=== PATIENT | female | born 1950 | race Caucasian/White ===

== ENCOUNTER → 2017-06-19 | Outpatient (CLI) | payer OTHER | LOC: ULTRA 07:39 | DX: K76.0 Fatty (change of) liver, not elsewhere classified (principal) ==

== ENCOUNTER 2017-07-18 05:12 | Observation (INO) | payer OTHER ==
[~2017-07-18] VITALS: Ht 172.7 cm; Wt 98.4 kg
--- NOTE | ~2017-07-18 | S ---
[facility] [place] [address] SURGICAL PATH RPT PROCEDURE Name: JOE HUNTER Room #: 440-P [facility]..#: [id number] Admission: 07/18/17 Date of : 52 Discharge: Report #: [id number] Path Case #: [id number] PATHOLOGY REPORT COLLECTION DATE: 07/18/2017 RECEIVED DATE: 07/18/2017 SUBMITTING PHYS: Dr. Romeo Magallanes OTHER PHYS: Dr. Jericho Doyle SPECIMEN(S) RECEIVED: A.Gallbladder * * * * * * * * * * * * FINAL DIAGNOSIS: Gallbladder, cholecystectomy: - Mild chronic cholecystitis. PATHOLOGIST: Pricila Marsh M.D. REPORT ELECTRONICALLY SIGNED BY: Pricila Marsh M.D. DATE/TIME: 07/19/2017 13:54 * * * * * * * * * * * * GROSS PATHOLOGY: Received in formalin labeled "Joe Hunter gallbladder," is a 5.5 x 4.2 x 0.9 cm, previously opened gallbladder with light green, wrinkled, and slightly vascular serosal surfaces. Opening the gallbladder reveals dark koroma, velvety mucosa and an average wall thickness of 0.2 cm. Calculi are not present (upon filtration of the specimen container and contents) and no masses are noted grossly. Quality Control Director sections from the body and fundus are submitted along with the proximal margin in cassette A1. (TSD; 07/18/2017) CLINICAL HISTORY: Cholecystitis with cholelithiasis INITIAL CPT CODE(S): A; 48600 Professional services performed by [facility] at [facility] [address], [place] [address] Technical services performed by [facility] at [address] [place] [id number]. [facility] [address] [place] [address] SURGICAL PATH RPT PROCEDURE Name: JOE HUNTER Room #: 440-P [facility] Alejandro Estrada#: [id number] Admission: 07/18/17 Date of : 52 Discharge: Report #: [id number] Path Case #: [id number] [facility] [address] PHONE: [phone] DIRECTOR: Vaibhav Zhu M.D. * * * END OF REPORT * * *
--- NOTE | ~2017-07-18 | EKG ---
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
--- NOTE | ~2017-07-18 | O ---
[facility] [place] [address] OPERATIVE REPORT Name: JOE BYRD Room #: 440-P [facility]..#: [id number] Admission: 07/18/17 Attend Phys: Romeo Magallanes MD Discharge: Date of : 52 Report #: [id number] THIS REPORT FOR: //name// CC: Romeo Doyle MD DATE OF SERVICE: 07/18/2017 PREOPERATIVE DIAGNOSES: Cholecystitis with cholelithiasis. POSTOPERATIVE DIAGNOSES: Cholecystitis with cholelithiasis. Stone stuck in the cystic duct, extensive adhesions around the gallbladder. PROCEDURES PERFORMED: Laparoscopic cholecystectomy with cholangiogram. SURGEON: Romeo Magallanes MD. ANESTHESIA: General anesthesia. COMPLICATIONS: None. ESTIMATED BLOOD LOSS: 5 mL. DESCRIPTION OF PROCEDURE: With the patient under general anesthesia, abdomen was prepped and draped in sterile fashion. Curvilinear incision was made infraumbilically about 2 cm. Fascia was identified, grasped with hemostat. Fascia was then opened under visualization, 0 Vicryl suture placed on the fascia edges. Veress needle was then placed through peritoneum. Abdominal cavity was insufflated by CO2. After creating pneumoperitoneum pressure of 15, an 11-mm trocar was placed into the pneumoperitoneum under visualization. No harm to underlying tissue. Two 5-mm trocars were placed in right upper quadrant, another 5 mm trocar placed in right epigastrium. The patient was placed in reverse Trendelenburg position, right side tilted up. The patient had extensive adhesion surrounding the gallbladder consistent with chronic inflammation. The adhesions were also stuck to the liver along the sides. These were taken down. The adhesion over the gallbladder was taken down. Care was to avoid the colon and the stomach. The gallbladder is fairly intrahepatic location. The gallbladder was isolated. The artery was found. The artery was isolated, clipped x 2 proximally, 1 distally and then divided. This allowed the cystic duct to come into view fully. Cystic duct junction of the gallbladder was difficult to tell the exact site because it was more of a funneling effect. The gallbladder cystic duct also was tortuous in its position. After the cystic duct was isolated, a clip was placed in the junction of the gallbladder to the cystic duct. Opening was made in the cystic duct. There is small blackish stone debris and stones in the cystic duct that was milked out. Cholangiogram [address] [address] OPERATIVE REPORT Name: JOE BYRD Room #: 440-P [facility] Alejandro Estrada#: [id number] Admission: 07/18/17 Attend Phys: Romeo Magallanes MD Discharge: Date of : 52 Report #: [id number] catheter was then inserted. Fluoroscopic cholangiogram was obtained. I could only get the catheter in a little bit. A clip was used to hold it in place. The dye flowed into the common bile duct without difficulty. I did not see any filling defect. Some of the dye did leak at the cannulation site. The cholangiogram catheter is identified in the cystic duct. No harm to common duct was seen. Cholangiogram catheter was then removed. The proximal cystic duct was then clipped x 2. Cystic duct was then divided. There is a posterior artery that was smaller that was isolated, clipped x 2 proximally and 1 distally, then divided. Gallbladder was freed from the liver bed without difficulty. Gallbladder was placed in specimen bag, retrieved through the infraumbilical port. Gallbladder contained multiple small blackish stones like the ones found in the cystic duct. The trocars were replaced. Irrigation was performed. Liver bed was hemostat. Irrigation was aspirated out. Trocars removed. CO2 was evacuated as much as possible. The patient's fascial defect infraumbilically was closed with [id number] 0 Vicryl x 2. The skin was irrigated, closed with 5-0 PDS. Steri-Strip, Band-Aids applied. The patient taken to recovery room. By: 2140 0002 Romeo Magallanes MD /nt
[~2017-07-18 05:12] MED LIST: HYDROCHLOROTHIA25 M2 PO; KLOR-CON 1010 MEQ PO; LANTUS100 UNIT/M SUBQ; LISINOPRIL PO; METFORMIN HCL500 MG PO; NOVOLOG100 UNIT/1 SUBQ; OMEPRAZOLE40 MG PO; PRAVACHOL40 MG PO; VITAMIN C500 M1 PO
[2017-07-18 07:43] LABS: HEMOGLOBIN 13.7 gm/dL (12.0-15.0)
[2017-07-18 07:51] LABS: CALCIUM 9.1 mg/dL (8.5-10.1)
[2017-07-18 07:56] LABS: ALBUMIN 3.8 g/dL (3.4-5.0); TOTAL BILIRUBIN 0.7 mg/dL (<0.1-1.0); TOTAL PROTEIN 6.9 g/dL (6.4-8.2)
[2017-07-18 08:15] VITALS: BP 163/81
[2017-07-18 12:48] VITALS: BP 175/75
[2017-07-18 16:00] VITALS: BP 189/77
[2017-07-18 20:59] VITALS: BP 155/70
[2017-07-19 04:50] VITALS: BP 151/21
[2017-07-19 08:00] VITALS: BP 154/74
[2017-07-19] MEDS ORDERED: NORCO 5-325 TA1 EACH PO (14:05)
[2017-07-19 14:22] VITALS: BP 154/74
== END 2017-07-19 15:15 | disposition home or self-care (01) ==
LOC: OR 05:12 → TBA 05:13 → OR 08:53 → 4S 12:41 → OR 13:58 → ENTRNSPT 07-19 14:52 → EDTRNSPTSTS 07-19 14:54 → 4S 07-19 15:15
PROVIDERS: Surgery
DX: K80.10 Calculus of gallbladder with chronic cholecystitis without obstruction (principal); I10 Essential (primary) hypertension; E11.9 Type 2 diabetes mellitus without complications
CPT/HCPCS: 50010; 50101; 50411; 50555; 50558; 51489; 51687; 53307; 53310; 53312; 55245; 55317; 56462; 56525; 56526; 62110; 62900; 70005

== ENCOUNTER → 2018-08-08 | Outpatient (CLI) | payer OTHER ==
[~2018-08-08] MED LIST changes: +NORCO 5-325 TA1 EACH PO
== END ==
LOC: RAD 06:01
DX: Z12.31 Encounter for screening mammogram for malignant neoplasm of breast (principal)

== ENCOUNTER → 2018-09-01 | Outpatient (CLI) | payer OTHER | LOC: RAD 16:51 | DX: I51.7 Cardiomegaly (principal); J98.4 Other disorders of lung; M47.814 Spondylosis without myelopathy or radiculopathy, thoracic region; M40.294 Other kyphosis, thoracic region; R09.3 Abnormal sputum ==

== ENCOUNTER 2018-09-27 11:15 | Emergency (ER) | payer OTHER ==
[~2018-09-27] VITALS: Ht 170.2 cm; Wt 95.3 kg
[2018-09-27] MEDS ORDERED: NORFLEX100 MG PO (12:22)
[2018-09-27] MEDS ORDERED: MEDROLDOSEPACK PO (12:22)
[2018-09-27 13:06] VITALS: BP 167/74
== END 2018-09-27 13:15 | disposition home or self-care (01) ==
LOC: ER 11:15
DX: M54.12 Radiculopathy, cervical region (principal); E11.9 Type 2 diabetes mellitus without complications; I10 Essential (primary) hypertension; E78.5 Hyperlipidemia, unspecified; K21.9 Gastro-esophageal reflux disease without esophagitis; F41.9 Anxiety disorder, unspecified; Z90.89 Acquired absence of other organs; Z79.4 Long term (current) use of insulin

== ENCOUNTER → 2019-04-14 | Outpatient (CLI) | payer OTHER ==
[~2019-04-14] MED LIST changes: +MEDROLDOSEPACK PO; +NORFLEX100 MG PO
== END ==
LOC: ULTRA 07:19
DX: I15.0 Renovascular hypertension (principal); R80.9 Proteinuria, unspecified

== ENCOUNTER → 2019-08-10 | Outpatient (CLI) | payer OTHER | LOC: RAD 01:32 | DX: Z12.31 Encounter for screening mammogram for malignant neoplasm of breast (principal) ==

== ENCOUNTER → 2019-09-03 | Outpatient (CLI) | payer OTHER | LOC: ULTRA 07:19 | DX: K76.0 Fatty (change of) liver, not elsewhere classified (principal); I10 Essential (primary) hypertension ==

== ENCOUNTER → 2019-09-08 | Outpatient (CLI) | payer OTHER | LOC: RAD 15:08 | DX: N83.291 Other ovarian cyst, right side (principal) ==

== ENCOUNTER 2019-09-22 07:36 | Emergency (ER) | payer OTHER ==
[~2019-09-22] VITALS: Ht 167.6 cm; Wt 99.8 kg
[2019-09-22] MEDS ORDERED: LIPITOR10 MG PO (08:07)
[2019-09-22] MEDS ORDERED: QUESTRAN PACKET4 GM PO (08:07)
[2019-09-22] MEDS ORDERED: TRIBENZOR 40-11 EAC1 PO (08:09)
[2019-09-22] MEDS ORDERED: NORFLEX100 MG PO (08:24)
[2019-09-22 08:58] VITALS: BP 174/75
--- NOTE | 2019-09-25 14:53 | EKG ---
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1950 Requested By: Milton Barton Order Number: [id number] MD: Sanchez Ellis Measurements Intervals [place] Rate: 88 P: -33 PA: 157 QRS: -11 QRSD: 93 T: 19 QT: 360 QTc: 436 Interpretive Statements Sinus rhythm Atrial premature complexes in couplets Probable left ventricular hypertrophy Inferior infarct, old Anterior Q waves, possibly due to LVH Lateral leads are also involved Compared to ECG 07/18/2017 07:23:25 Left ventricular hypertrophy now present Q waves now present Poor R-wave progression no longer present Myocardial infarct finding still present Electronically Signed On 09-25-2019 14:52:44 ORCHESTRA LEADER by Sanchez Ellis [email or web address] <ELECTRONICALLY SIGNED> By: Sanchez Ellis MD 09/25/19 1452 0 0 Sanchez Ellis MD /EPI
== END 2019-09-22 08:59 | disposition home or self-care (01) ==
LOC: ER 07:36
DX: M43.6 Torticollis (principal); I10 Essential (primary) hypertension; E11.9 Type 2 diabetes mellitus without complications; K21.9 Gastro-esophageal reflux disease without esophagitis; F41.9 Anxiety disorder, unspecified; Z90.49 Acquired absence of other specified parts of digestive tract; Z79.4 Long term (current) use of insulin

== ENCOUNTER → 2020-02-08 | Outpatient (CLI) | payer OTHER ==
[~2020-02-08] MED LIST changes: +LIPITOR10 MG PO; +QUESTRAN PACKET4 GM PO; +TRIBENZOR 40-11 EAC1 PO
== END ==
LOC: CAT 07:46
DX: Z13.6 Encounter for screening for cardiovascular disorders (principal)

== ENCOUNTER → 2020-03-02 | Outpatient (CLI) | payer OTHER | LOC: SJCVCIMAG 08:44 | DX: I08.2 Rheumatic disorders of both aortic and tricuspid valves (principal); I11.9 Hypertensive heart disease without heart failure; R00.0 Tachycardia, unspecified; R93.1 Abnormal findings on diagnostic imaging of heart and coronary circulation; E11.9 Type 2 diabetes mellitus without complications; E78.5 Hyperlipidemia, unspecified; Z79.899 Other long term (current) drug therapy; Z79.84 Long term (current) use of oral hypoglycemic drugs ==

== ENCOUNTER → 2020-03-21 | Outpatient (CLI) | payer OTHER ==
[~2020-03-21] MED LIST changes: +ATIVAN1 M1 PO; +DITROPAN5 MG/5 ML PO; +LANTUS SUBQ; +NORVASC 2.5 MG2.5 M1 PO; +NOVOLOG FL100 UNIT/M SUBQ; +TORSEMIDE20 MG PO
== END ==
LOC: LAB 03-18 11:49
PROVIDERS: ATTEND Internal Medicine
DX: Z01.818 Encounter for other preprocedural examination (principal); Z11.59 Encounter for screening for other viral diseases

== ENCOUNTER → 2020-03-24 | Outpatient (CLI) | payer OTHER ==
[~2020-03-24] VITALS: Ht 167.6 cm; Wt 102.1 kg
[2020-03-24 07:11] VITALS: BP 175/78
[2020-03-24 07:44] LABS: HEMATOCRIT 38.4 % (37.0-47.0); MCHC 33.7 g/dL (28.0-37.0); MCV 85.9 fL (80.0-100.0); RBC 4.47 mil/uL (4.20-5.00); RDW 13.6 % (10.5-14.5); WBC 5.9 thou/uL (4.0-11.0)
[2020-03-24 07:54] LABS: CALCIUM 8.5 mg/dL (8.5-10.1); CREATININE 1.1 mg/dL (0.6-1.0); POTASSIUM 3.9 mmol/L (3.5-5.1)
--- NOTE | 2020-03-24 09:16 | CATHLAB ---
[facility] [place] [address] INVASIVE PROCEDURE REPORT Name: JOE BYRD Room #: REG [facility]#: [id number] Admission: 03/24/20 Attend Phys: Geoffrey Bray MD, Discharge: Date of : 52 Report #: [id number] THIS REPORT FOR: cc: Jericho Doyle,Geoffrey Valentino MD [facility] ~ APPROVED REPORT Study performed: 03/24/2020 07:40:49 Patient Details The patient is a 69 year-old female Event Personnel Geoffrey rBay Supervisor Shipping Room, Nancy Bah RTR, eTe Forbes Sherra RTR Monitor, Susanne Jorge RTR Monitor, Donn Orozco RN, Arcenio Adair RN library acquisitions technician Performed Art Access - R femoral artery* Left Heart Cath w/or w/o Coronaries [id number] [facility] [address] Initial Mod Sed Same Phys/QHP Gr5y 737158 97847 Mod Sed Same Phys/QHP Ea 177697 Hemostasis w/ Mynx Indication Chest pain Procedure Narrative The Right Groin 20ML^ was infiltrated with subcutaneous anesthesia. The right femoral accessed via ultrasound guidance. A PINNACLE 6FR Sheath #[id number] sheath was inserted into the RIGHT FEMORAL ARTERY. Coronary angiography was performed using coronary diagnostic catheters. The right coronary system was accessed and visualized with a 6FR JR 4 #[id number] catheter. The left coronary system was accessed and visualized with a 6FR JL4 #[id number] catheter. The left ventricle was accessed and visualized with a 6FR PIGTAIL 145 ANGLED #[id number] catheter. Left ventriculogram was performed in 30 degree projection. An aortogram of the abdominal aorta was performed. Closure device was deployed with a Fr MYNXGRIP 6/7F #[id number]. The patient tolerated the procedure well and there were no complications associated with the procedure. There was no hematoma. Intraoperative Conscious Sedation Sedation start time: 8:21 Case end Time: 8:[address] [address] INVASIVE PROCEDURE REPORT Name: JOE BYRD ALLIE [id number] Admission: 03/24/20 Attend Phys: Geoffrey Bray, Discharge: Date of : 52 Report #: [id number] Fentanyl 100 mcg Versed 2 mg Fluoro Time: 2.00 minutes Dose: DAP 6317.00 cGycm2 866 mGy Contrast Type and Amount: Visipaque 115 ml Coronary Angiography The patient's coronary anatomy is left dominant. Diagnostic Cath Left Main Normal left main LAD Normal left anterior descending Diagonal 1 Small, single diagonal branch, angiographically normal Circumflex Large, nondominant circumflex OM1 Large single marginal branch, angiographically normal Right Coronary Dominant right coronary, angiographically normal R PDA Normal small posterior descending Ramus Minimal plaquing at the origin of a large ramus branch Left Ventriculography The left ventricle is normal in size with normal contractility. The left ventricular ejection fraction is estimated to be 60-65%. Left ventricular wall motion abnormalities are not present. There is no mitral insufficiency. Hemodynamics The aortic pressure is 192/75 mmHg with a mean of 123 mmHg. The left ventricular pressure is 201/16 mmHg with a mean of mmHg. The left ventricular end diastolic pressure is 32 mmHg. Conclusion 1. Normal global and regional left ventricular systolic function. Ejection fraction 65%. 2. Normal left main 3. Normal coronary vasculature. Right coronary dominant circulation. <ELECTRONICALLY SIGNED> By: Geoffrey Bray MD, FACC 03/24/20914 4 4 Geoffrey Bray MD, FACC /INF
== END | disposition home or self-care (01) ==
LOC: CATH 03-23 09:36
PROVIDERS: ATTEND Internal Medicine
DX: R07.9 Chest pain, unspecified (principal); I25.10 Atherosclerotic heart disease of native coronary artery without angina pectoris; I10 Essential (primary) hypertension; E11.9 Type 2 diabetes mellitus without complications; E78.5 Hyperlipidemia, unspecified; K21.9 Gastro-esophageal reflux disease without esophagitis; Z98.890 Other specified postprocedural states; Z85.820 Personal history of malignant melanoma of skin; Z79.899 Other long term (current) drug therapy; Z79.4 Long term (current) use of insulin

== ENCOUNTER → 2020-08-15 | Outpatient (CLI) | payer OTHER | LOC: BC 10:12 | PROVIDERS: ATTEND Obstetrics & Gynecology | DX: Z12.31 Encounter for screening mammogram for malignant neoplasm of breast (principal) ==

== ENCOUNTER → 2021-09-20 | Outpatient (CLI) | payer OTHER | LOC: RAD 14:11 | PROVIDERS: ATTEND Neuromusculoskeletal Medicine & OMM | DX: Z12.31 Encounter for screening mammogram for malignant neoplasm of breast (principal); N64.89 Other specified disorders of breast ==